=== PATIENT | female | born 1985 | race Caucasian/White ===

== ENCOUNTER 2017-01-08 14:04 | Emergency (ER) | payer OTHER ==
[~2017-01-08 14:04] MED LIST: ALBUTEROL17 GM INH; DELTASONE20 MG PO; HYDROMET SYRUP480 ML PO; NO MEDICATIONS; PREDNISONE10 MG PO; ROBITUSSIN A-C-S1 ML PO; ZITHROMAX PO
== END 2017-01-08 15:42 | disposition home or self-care (01) ==
LOC: CED 14:04 → CFTX 14:04
DX: B07.0 Plantar wart (principal); F17.210 Nicotine dependence, cigarettes, uncomplicated; Z79.899 Other long term (current) drug therapy; Z88.8 Allergy status to other drugs, medicaments and biological substances
CPT/HCPCS: 99282